=== PATIENT | male | born 1955 | race Caucasian/White ===

== ENCOUNTER 2020-08-13 09:00 | Observation (INO) | payer MEDICARE ==
[~2020-08-13] VITALS: Ht 182.9 cm; Wt 105.9 kg
[2020-08-13 12:46] LABS: APPEARANCE,URINE Clear (CLEAR); BILIRUBIN,URINE Negative (NEGATIVE); COLOR,URINE Dark Yellow (YELLOW); GLUCOSE, URINE (UA) Negative (NEGATIVE); KETONES,URINE Negative (NEGATIVE); LEUKOCYTE ESTERASE ,URINE Negative (NEGATIVE); NITRATE,URINE Negative (NEGATIVE); OCCULT BLOOD,URINE Negative (NEGATIVE); PROTEIN,URINE Negative (NEGATIVE)
[2020-08-13 12:53] LABS: INR 1.03 (0.85-1.15); PROTHROMBIN TIME 11.2 SEC (9.6-11.6)
[2020-08-13 13:01] LABS: BACTERIA,URINE Rare /HPF (None Seen); MUCUS,URINE Few LPF (None Seen); RBC,URINE 0-1 /HPF (0-1); SQUAMOUS EPITHELIAL CELL,UR Rare /HPF (0-2); WBC,URINE 0-1 /HPF (0-1)
[2020-08-17 14:36] VITALS: BP 161/97
[2020-08-17] MEDS ORDERED: DICL75TA5 PO (14:41)
[2020-08-17] MEDS ORDERED: AMLO-257 PO (14:41)
[2020-08-17] MEDS ORDERED: MULT-1203 PO (14:41)
[2020-08-17] MEDS ORDERED: TUMERIC PO (14:43)
[2020-08-18] VITALS (24 sets, daily range): BP systolic 103–151; BP diastolic 62–92
[2020-08-18] MEDS: CEFAZOLIN SODIUM 1 GM VIAL IVP SCH ×3 (06:00→16:16)
[2020-08-18] MEDS ORDERED: CEFAZOLIN SODIUM 1 GM VIAL ONE ×2 (06:42→06:58)
[2020-08-18] MEDS ORDERED: LACTATED RINGERS 1000ML 1,000 ML IV ONE (06:42)
[2020-08-18] MEDS ORDERED: SCOPOLAMINE HYDROBROMIDE 1 EACH ADH..PATCH TD ONE (07:42)
[2020-08-18] MEDS ORDERED: DEXAMETHASONE SOD PHOSPHATE 10MG/ML 1ML VIAL ONE (07:45)
[2020-08-18] MEDS ORDERED: SUCCINYLCHOLINE CHLORIDE 20 MG/ML 10 ML VIAL ONE (07:45)
[2020-08-18] MEDS ORDERED: ONDANSETRON 4MG INJ ONE (07:45)
[2020-08-18] MEDS ORDERED: PROPOFOL 10 MG/ML 20ML VIAL IV ONE (07:45)
[2020-08-18] MEDS ORDERED: ROCURONIUM 10MG/1ML SYR 10 MG/ML ML ONE (07:45)
[2020-08-18] MEDS ORDERED: KETAMINE 50MG/ML SYRINGE 50 MG/ML DISP.SYRIN IV ONE (07:46)
[2020-08-18] MEDS ORDERED: MIDAZOLAM HCL 1 MG/ML 2ML VIAL ONE (07:50)
[2020-08-18] MEDS ORDERED: ROPIVACAINE 0.5% 5MG/ML 30ML IJ ONE ×2 (07:50→07:52)
[2020-08-18] MEDS ORDERED: TRANEXAMIC ACID 1000MG/10ML ONE ×2 (08:09→11:43)
[2020-08-18] MEDS ORDERED: FENTANYL CITRATE PF 50 MCG/1 ML 2ML VIAL ONE ×2 (09:12→09:56)
[2020-08-18] MEDS ORDERED: GLYCOPYRROLATE 1 MG/5 ML SYRINGE ONE (10:53)
[2020-08-18] MEDS ORDERED: NEOSTIGMINE 5MG/5ML SYR IV ONE (10:54)
[2020-08-18] MEDS ORDERED: KETOROLAC 30MG VIAL (30MG/ML) ONE (10:55)
[2020-08-18] MEDS ORDERED: ONDANSETRON 4MG INJ IVP PRN (11:00)
[2020-08-18] MEDS ORDERED: DiphenhydrAMINE HCL 50 MG/ML VIAL IVP PRN (11:00)
[2020-08-18] MEDS ORDERED: KCL 20 MEQ ERTAB PO PRN (11:00)
[2020-08-18] MEDS ORDERED: TEMAZEPAM 15 MG CAPSULE PO PRN (11:00)
[2020-08-18] MEDS ORDERED: POTASSIUM CHLORIDE 20MEQ/100ML 100 ML IV PRN (11:00)
[2020-08-18] MEDS ORDERED: POTASSIUM CHLORIDE 10% ELIXIR 20 MEQ/15 ML UDCUP PO PRN (11:00)
[2020-08-18] MEDS ORDERED: OXYCODONE HCL 5 MG TAB PO PRN (11:00)
[2020-08-18] MEDS ORDERED: ACETAMINOPHEN 500 MG TABLET PO SCH (11:00)
[2020-08-18] MEDS ORDERED: LIDOCAINE HCL-MPF 1% 2ML VIAL IV PRN (11:00)
[2020-08-18] MEDS ORDERED: TRAMADOL HCL 50 MG TABLET PO PRN (11:00)
[2020-08-18] MEDS ORDERED: FERROUS FUMARATE 324 MG TABLET PO PRN (11:00)
[2020-08-18] MEDS: NACL 0.9% 1000ML 1,000 ML IV SCH ×2 (11:00→19:42)
[2020-08-18] MEDS ORDERED: MEPERIDINE-PF 25 MG/ML SYG ONE ×3 (11:32→12:23)
[2020-08-18] MEDS: OXYCODONE HCL 5 MG TAB PO PRN ×2 (16:17→20:47)
[2020-08-18] MEDS ORDERED: ACETAMINOPHEN 500 MG TABLET ONE (19:34)
[2020-08-18] MEDS: ASPIRIN 81MG CHEW TAB PO SCH (19:40)
[2020-08-18] MEDS: PREGABALIN 25 MG CAP PO SCH (19:40)
[2020-08-18] MEDS: ACETAMINOPHEN 500 MG TABLET PO SCH (19:40)
[2020-08-18] MEDS: FAMOTIDINE 20MG TAB PO SCH (19:40)
[2020-08-18] MEDS: CELECOXIB 200 MG CAP PO SCH (19:40)
[2020-08-19] MEDS: CEFAZOLIN SODIUM 1 GM VIAL IVP SCH (00:07)
[2020-08-19] MEDS: KETOROLAC 15MG/ML VIAL (15MG/ML) IV PRN ×4 (00:08→23:36)
[2020-08-19] MEDS: OXYCODONE HCL 5 MG TAB PO PRN ×4 (01:33→20:08)
[2020-08-19 03:35] LABS: HEMATOCRIT 37.7 % (42-54); MEAN CORPUSCULAR HEMOGLOBIN 30.5 pg (27.0-33.0); MEAN CORPUSCULAR VOLUME 89.8 fL (79-99); RED BLOOD CELL COUNT(AUTO) 4.2 MIL/uL (4.50-6.20); RED CELL DISTRIBUTION WIDTH 13.2 % (11.0-15.5); WHITE BLOOD COUNT (AUTO) 14.5 K/uL (4.8-10.8)
[2020-08-19 03:41] LABS: CREATININE 1.2 mg/dL (0.5-1.5); POTASSIUM 4.2 mmol/L (3.5-5.1)
[2020-08-19] MEDS: NACL 0.9% 1000ML 1,000 ML IV SCH (05:25)
[2020-08-19] MEDS: ACETAMINOPHEN 500 MG TABLET PO SCH ×3 (05:53→20:46)
[2020-08-19] MEDS: POLYETHYLENE GLYCOL 3350 17 GM POWD.PACK PO SCH (07:53)
[2020-08-19] MEDS: PREGABALIN 25 MG CAP PO SCH ×2 (07:53→20:08)
[2020-08-19] MEDS: TAMSULOSIN HCL 0.4 MG CAP.ER.24H PO SCH (07:54)
[2020-08-19] MEDS: AMLODIPINE 5 MG TAB PO SCH (07:54)
[2020-08-19] MEDS: MULTIVITAMIN WITH MINERALS TABLET PO SCH (07:54)
[2020-08-19] MEDS: ASPIRIN 81MG CHEW TAB PO SCH ×2 (07:54→20:08)
[2020-08-19] MEDS: FAMOTIDINE 20MG TAB PO SCH ×2 (07:54→20:08)
[2020-08-19] MEDS: CALCIUM CARB 500MG PO PRN ×2 (07:54→20:08)
[2020-08-19] MEDS: CELECOXIB 200 MG CAP PO SCH ×2 (07:54→20:08)
[2020-08-19 08:42] VITALS: BP 115/71
[2020-08-19 11:25] VITALS: BP 128/83
[2020-08-19] MEDS: HYDROMORPHONE 1 MG INJ IVP PRN (15:24)
[2020-08-19 16:26] VITALS: BP 125/78
[2020-08-19 19:50] VITALS: BP 123/72
[2020-08-19 23:37] VITALS: BP 127/82
[2020-08-20] MEDS: HYDROMORPHONE 1 MG INJ IVP PRN (00:59)
[2020-08-20] MEDS: ACETAMINOPHEN 500 MG TABLET PO SCH ×2 (04:28→12:25)
[2020-08-20 04:35] VITALS: BP 131/87
[2020-08-20] MEDS: OXYCODONE HCL 5 MG TAB PO PRN ×3 (06:40→18:08)
[2020-08-20 08:00] VITALS: BP 138/85
[2020-08-20] MEDS: POLYETHYLENE GLYCOL 3350 17 GM POWD.PACK PO SCH (09:59)
[2020-08-20] MEDS: AMLODIPINE 5 MG TAB PO SCH (09:59)
[2020-08-20] MEDS: MULTIVITAMIN WITH MINERALS TABLET PO SCH (10:00)
[2020-08-20] MEDS: ASPIRIN 81MG CHEW TAB PO SCH ×2 (10:00→20:45)
[2020-08-20] MEDS: PREGABALIN 25 MG CAP PO SCH ×2 (10:00→20:46)
[2020-08-20] MEDS: CELECOXIB 200 MG CAP PO SCH ×2 (10:00→20:45)
[2020-08-20] MEDS: FAMOTIDINE 20MG TAB PO SCH ×2 (10:00→20:45)
[2020-08-20] MEDS: TAMSULOSIN HCL 0.4 MG CAP.ER.24H PO SCH (10:00)
[2020-08-20 11:51] VITALS: BP 124/85
[2020-08-20] MEDS: KETOROLAC 15MG/ML VIAL (15MG/ML) IV PRN (12:24)
[2020-08-20] MEDS ORDERED: ASPI-1005 PO (18:11)
[2020-08-20] MEDS ORDERED: OXYC-38 PO (18:11)
[2020-08-20 20:00] VITALS: BP 159/94
[2020-08-21] MEDS ORDERED: BISACODYL 10 MG SUPP.RECT RC PRN (11:00)
== END 2020-08-20 21:11 | disposition home or self-care (01) ==
LOC: EDSTATUS 09:00 → DAHIP 08-18 05:52 → 4AH 08-18 13:07
PROVIDERS: ADMIT Orthopaedic Surgery; ATTEND Orthopaedic Surgery
DX: M17.12 Unilateral primary osteoarthritis, left knee (principal); Z20.822 Contact with and (suspected) exposure to COVID-19; I10 Essential (primary) hypertension; Z87.891 Personal history of nicotine dependence; Z79.899 Other long term (current) drug therapy
CPT/HCPCS: 27447; 36415 ×2; 80048; 81001; 85027; 85610; 87641; 88305; 88311; 96361 ×2; 96374; 96375; 96376 ×2; 97039 ×5; 97116 ×3; 97161; 97530 ×4; A4213; A4215; A4216; A4221; A4222; A4223 ×2; A4649 ×3; A4663; A4930 ×2; A5120; A9272; C1776; G0378 ×55; G8979; G8980; G8981; G8982; G8983; J0330; J0690 ×4; J1100; J1170 ×2; J1885 ×7; J2175 ×3; J2250; J2405; J2704; J2710; J2795 ×2; J3010 ×2; J3490 ×4; J7030 ×2; J7120 ×2; U0003

== ENCOUNTER 2021-04-01 04:55 | Emergency (ER) | payer MEDICARE ==
[~2021-04-01] VITALS: Ht 182.9 cm; Wt 102.1 kg
[~2021-04-01 04:55] MED LIST: AMLO-257 PO; ASPI-1005 PO; MULT-1203 PO; OXYC-38 PO; TUMERIC PO
[2021-04-01] MEDS ORDERED: 0.9%NACL 1000ML 1,000 ML IV ONE ×3 (04:56→08:29)
[2021-04-01 05:47] LABS: BASOPHILS % (AUTO) 0.1 % (0.0-5.0); EOSINOPHILS % (AUTO) 0.1 % (0.0-8.0); HEMATOCRIT 50.7 % (42-54); LYMPHOCYTES % (AUTO) 13.9 % (21.0-51.0); MEAN CORPUSCULAR HEMOGLOBIN 30.7 pg (27.0-33.0); MEAN CORPUSCULAR HGB CONC 34.7 g/dL (32.0-36.0); MEAN CORPUSCULAR VOLUME 88.5 fL (79-99); MONOCYTES % (AUTO) 8.5 % (3.0-13.0); NEUTROPHILS % (AUTO) 76.9 % (40.0-77.0); PLATELET COUNT (AUTO) 280 K/uL (130-400); RED BLOOD CELL COUNT(AUTO) 5.73 MIL/uL (4.50-6.20); RED CELL DISTRIBUTION WIDTH 13.2 % (11.0-15.5); WHITE BLOOD COUNT (AUTO) 14.3 K/uL (4.8-10.8)
[2021-04-01] MEDS ORDERED: PANTOPRAZOLE 40 MG/VIAL ONE (05:50)
[2021-04-01] MEDS ORDERED: METOCLOPRAMIDE 10 MG/2 ML VIAL ONE (05:50)
[2021-04-01] MEDS ORDERED: ONDANSETRON 4MG INJ ONE (05:50)
[2021-04-01] MEDS ORDERED: FAMOTIDINE 20MG VIAL IV ONE ×2 (05:50→06:00)
[2021-04-01] MEDS ORDERED: ONDANSETRON 4MG INJ IVP ONE (06:00)
[2021-04-01] MEDS ORDERED: METOCLOPRAMIDE 10 MG/2 ML VIAL IVP ONE (06:00)
[2021-04-01] MEDS ORDERED: PANTOPRAZOLE 40 MG/VIAL IVP ONE (06:00)
[2021-04-01 06:08] LABS: ALBUMIN 4.7 g/dL (3.5-5.0); BILIRUBIN,TOTAL 1.3 mg/dL (0.2-1.0); CREATININE 1.2 mg/dL (0.5-1.5); POTASSIUM 3.3 mmol/L (3.5-5.1); TOTAL PROTEIN, SERUM 8.8 g/dL (6.0-8.3)
[2021-04-01] MEDS ORDERED: 0.9%NACL 1000ML 1,000 ML IV SCH (08:30)
[2021-04-01] MEDS ORDERED: PANT40TA PO (08:31)
[2021-04-01] MEDS ORDERED: ONDA4TAB10 PO (08:31)
[2021-04-01] MEDS ORDERED: METO-296 PO (08:31)
[2021-04-01 08:49] VITALS: BP 150/94
== END 2021-04-01 09:16 | disposition home or self-care (01) ==
LOC: EDH 04:55
DX: E86.9 Volume depletion, unspecified (principal); R10.13 Epigastric pain; R11.2 Nausea with vomiting, unspecified; I10 Essential (primary) hypertension; Z79.82 Long term (current) use of aspirin; Z79.899 Other long term (current) drug therapy
CPT/HCPCS: 36415; 71045; 74176; 80053; 83690; 84484; 85025; 93005; 96361; 96374; 96375; 99285; C9113; J2405; J2765; J3490; J7030 ×2